=== PATIENT | female | born 1940 | race Caucasian/White ===

== ENCOUNTER 2019-11-06 09:19 | Outpatient (CLI) | payer MEDICARE, BC ==
--- NOTE | 2019-11-06 09:47 | RAD ---
EXAM: Chest 2 views: HISTORY: Dyspnea COMPARISON: 10/09/2019 FINDINGS: There is a normal-sized cardiomediastinal silhouette. Increased interstitial lung markings are prese nt. There appears be an infiltrate in the right lower lobe. The previously seen right pleural effusion has resolved. Biapical pleural thickening is seen. Atherosclerotic calcifications are seen i n the aorta. Surgical clips are seen in the left axilla. IMPRESSION: Right lower lobe infiltrate
== END 2019-11-06 09:20 | disposition home or self-care (01) ==
LOC: BICRAD 09:19
PROVIDERS: ATTEND Internal Medicine Critical Care Medicine
DX: R06.00 Dyspnea, unspecified (principal); R91.8 Other nonspecific abnormal finding of lung field
CPT/HCPCS: 71046